=== PATIENT | male | born 1955 | race American Indian/Alaskan Native ===

== ENCOUNTER 2021-02-01 09:50 | Outpatient (CLI) | payer OTHER ==
[2021-02-01 11:07] LABS: Blood Urea Nitrogen 14 mg/dL (9-20)
--- NOTE | 2021-02-01 13:48 | Cat Scan Report ---
CTA CHEST (AORTIC ANEURYSM) INDICATION / CLINICAL INFORMATION: THORACIC AORTIC ANCURTSM. TECHNIQUE: Axial CT images were obtained through the chest after injection of 100 cc of Omnipaque 350 IV contrast. 3 plane MIP and/or 3D reconstructions were produced. All CT scans at this location are performed using CT dose reduction for ALARA by means of automated exposure control. COMPARISON: None available. FINDINGS: HEART: - Size: Normal. - [place] Coronary Atherosclerosis: None. - Pericardium: No pericardial effusion. THORACIC AORTA: - Dissection: No dissection. - Aneurysm: The thoracic aorta is mildly ectatic. The ascending thoracic aorta measures 4.1 cm. The a ortic arch measures 3.3 cm. The descending thoracic aorta measures 2.6 cm. - Atherosclerosis: No significant atherosclerosis. GREAT VESSELS: No acute abnormality. No significant atherosclerosis. PULMONARY ARTERIES: No pulmonary emboli. CHEST VEINS: Single SVC of normal caliber as visualized to the right of midline. No significant abnor mality. ADDITIONAL CHEST FINDINGS: Lungs are clear. UPPER ABDOMEN: No signficant abnormality. SKELETAL SYSTEM: No significant abnormality. IMPRESSION: There is mild aneurysmal dilatation of the ascending aorta measuring 4.1 cm. Signer Name: Wellington Denis Jr, MD Signed: 02/01/2021 1:44 PM Workstation Name: [employer] [id number]
== END 2021-02-01 09:51 | disposition home or self-care (01) ==
LOC: CT 09:50
PROVIDERS: ATTEND Internal Medicine Cardiovascular Disease
DX: I71.2 Thoracic aortic aneurysm, without rupture (principal); R07.2 Precordial pain; Z86.79 Personal history of other diseases of the circulatory system
CPT/HCPCS: 36415; 71275; 82565; 84520; Q9967